=== PATIENT | male | born 1955 ===

== ENCOUNTER 2016-09-14 18:48 | Emergency (ER) | payer OTHER ==
[~2016-09-14] VITALS: Ht 172.7 cm; Wt 64.4 kg
[~2016-09-14 18:48] MED LIST: CYCLOBENZAPRINE5 M2 PO; MOBIC15 M1 PO
[2016-09-14] MEDS ORDERED: MECLIZINE HCL25 MG PO ×2 (19:54→21:28)
[2016-09-14] MEDS ORDERED: ALPRAZOLAM2 M2 PO (19:55)
[2016-09-14] MEDS ORDERED: MULTI-DAY VITA1 EACH PO (19:56)
[2016-09-14] MEDS ORDERED: VITAMIN D-32000 UNI1 PO (19:56)
--- NOTE | 2016-09-14 20:04 | ED AMS/SEIZURE/WEAK/DIZZY ---
History of Present Illness General Chief Complaint: Dizziness Stated Complaint: VERTGO X 1WK Source: patient, family Exam Limitations: no limitations Vital Signs & Intake/Output Vital Signs & Intake/Output Vital Signs Date Time Temp Pulse Resp B/P Pulse O2 O2 Flow FiO2 Ox Delivery Rate 09/14 2100 80 18 174/80 98 Room Air 09/15 1955 Room Air 09/14 1904 98.0 88 20 190/85 99 Room Air Allergies Coded Allergies: No Known Allergies (10/26/15) Reconcile Medications Alprazolam 2 MG TABLET 1 TAB PO PRN ANXIETY (Reported) Cholecalciferol (Vitamin D3) (Vitamin D-3) 2,000 UNIT CAPSULE 1 CAP PO DAILY SUPPLEMENT (Reported) Meclizine HCl 25 MG TABLET 1 TAB PO AD PRN VERTIGO (Reported) Meclizine HCl 25 MG TABLET 1 TAB PO TIDPRN PRN VERTIGO Multivitamin (Multi-Day Vitamins) 1 EACH TABLET 1 TAB PO DAILY SUPPLEMENT ( Reported) Scopolamine Hydrobromide (Transderm-Scop) 1.5MG/3DAY PATCH.TD.3 1 PAT TOP Q3D VERTIGO apply to the hairless area behind 1 ear at least 4 hours before effect is required; reapply every 3 days as needed Triage Note: PATIENT C/O DIZZINESS AND VERTIGO FOR APPROX 2 WEEKS ATTEMPTED TO USE MECLIZINE OTC W/O RELEIF REPORTS OTHER SYMPTOMS W/ HEARING, SPEECH , BALANCE Triage Nurses Notes Reviewed? yes Onset: Abrupt Duration: getting worse, intermittent Timing: multiple episodes today Severity: severe Severity Numbers: 10 HPI: Patient is a 61-year-old male with a past medical history of anxiety who presents emergency room with a one-month history of gradual onset of intermittent room spinning and dizzy sensations. Patient states the last week symptoms have been more persistent pattern with head movements making worse and today patient was complaining of persistent room spinning and dizziness episodes. Patient did try myfe-ife-twctubf meclizine in the past week with relief however today after 2 doses it is UNrelieving. Patient states that during episodes of presenting complaints he has associated symptoms of difficulty finding words or difficulty performing daily living activities such as driving Episodes have associated symptoms of blurred vision Patient denies any illicit drug use Patient states that he did have one episode of headache earlier this week however no headaches currently. Patient presents with son in which they both state no slurred speech or facial droop or extremity weakness has been noted. Patient denies any fevers photophobia ear pain chest pain arm pain jaw pain cough nausea or vomiting Patient did not take his benzodiazepine today due to not having any anxiety-like symptoms (ELMER SOARES) Past History Travel History Traveled to [place] past 21 day No Medical History Any Pertinent Medical History? see below for history Neurological: NONE EENT: NONE Cardiovascular: hyperlipidemia Respiratory: NONE Gastrointestinal: NONE Hepatic: NONE Renal: NONE Musculoskeletal: NONE Psychiatric: anxiety Endocrine: NONE Blood Disorders: NONE Cancer(s): NONE Surgical History Surgical History: non-contributory Psychosocial History What is your primary language Georgian Tobacco Use: Never used ETOH Use: denies use Family History Hx Contributory? No (ELMER SOARES) Review of Systems Review of Systems Constitutional: Reports: see HPI. EENTM: Reports: see HPI. Respiratory: Reports: no symptoms. Cardiovascular: Reports: no symptoms. GI: Reports: no symptoms. Genitourinary: Reports: no symptoms. Musculoskeletal: Reports: no symptoms. Skin: Reports: no symptoms. Neurological/Psychological: Reports: see HPI. Hematologic/Endocrine: Reports: no symptoms. Immunologic/Allergic: Reports: no symptoms. All Other Systems: Reviewed and Negative (ELMER SOARES) Physical Exam Physical Exam General Appearance: no apparent distress, alert, comfortable Comments: Well-developed well-nourished person in no acute distress HEENT: Normal EENT exam, extraocular motion intact, no nystagmus. Pupils equally round and reactive to light and accommodation. Nose is atraumatic. External auditory canal and Tympanic membranes clear. Pharynx normal. No swelling or edema. Neck: Supple, no lymphadenopathy, normal range of motion without pain or tenderness Back: Nontender, no CVA tenderness. Full range of motion Cardiovascular: Regular rate and rhythms no murmurs rubs or gallops, normal JVP Respiratory: Chest nontender. No respiratory distress.breath sounds clear to auscultation bilaterally Abdomen: Soft, nontender nondistended, no appreciable organomegaly. Normal bowel sounds. No ascites Extremity: No edema, no calf tenderness to palpation, normal and equal pulses. Neuro: Alert oriented x3, motor sensory normal, cranial nerves II through XII grossly intact Modified [place]-Hallpike was positive for room spinning sensation. Skin: No appreciable rash on exposed skin, skin is warm and dry. Psych: Mood and affect is normal, memory and judgment is normal. NIH STROKE SCALE -0 Core Measures ACS in differential dx? No CVA/TIA Diagnosis: No Severe Sepsis Present: No Septic Shock Present: No (HERB JEFFRIES,ELMER) Progress Differential Diagnosis: arrythmia, alcohol intoxication, anemia, benign positional vertigo, CVA/stroke, dehydration, drug intoxication, encephalitis, electrolyte imbalance, GI bleed, hypoglycemia, hypoxia, intracranial Hem., intracranial mass/tumor, labrynthitis, meningitis, Meniere's disease, migraine BRIDGES, multiple sclerosis, pneumonia, postural hypotension, presyncope, post- traumatic vertigo, sepsis, seizure disorder, subarachnoid Hem., UTI/pyelo, vertebrobasilar insuff Plan of Care: Orders Procedure Date/time Status COMPREHENSIVE METABOLIC PANEL 09/14 2009 Complete CBC WITHOUT DIFFERENTIAL 09/14 2009 Complete EKG 09/14 2009 Active Laboratory Tests 09/14/162026: Anion Gap 7, Estimated GFR > 60, BUN/Creatinine Ratio 21.1, Glucose 105 H, Calcium 9.3, Total Bilirubin 0.5, AST 29, ALT 29, Alkaline Phosphatase 61, Total Protein 7.0, Albumin 4.2, Globulin 2.8, Albumin/Globulin Ratio 1.5, CBC w Diff NO MAN DIFF REQ, RBC 5.47, MCV 85.9, MCH 28.6, RDW 13.6, MPV 8.0, Gran % 62.6, Lymphocytes % 26.9, Monocytes % 8.5, Eosinophils % 1.3, Basophils % 0.7, Absolute Granulocytes 4.4, Absolute Lymphocytes 1.9, Absolute Monocytes 0.6, Absolute Eosinophils 0.1, Absolute Basophils 0, PUBS MCHC 33.3 09/14/2016 9:02:47 PM on initial examination patient was in no apparent distress however due to past medical history and history of present illness and exam findings that there is suspicion of BPPV At this time there is no suspicion of CVA or TIA in which patient's NIH stroke scale was [address] scan and EKG. After reevaluating patient with medications he had significant resolution of his symptoms. I also suspect that patient has been unknowingly administering previously prescribed benzodiazepine with relief of his breakthrough vertigo symptoms however since patient did not take his medications today the symptoms have been persistent. Patient had unremarkable labs unremarkable CT scan and blood work and patient had complete resolution of symptoms prior to discharge. Patient had normal steady gait on discharge. Patient was strongly advised to follow-up with ENT for concerns of positional vertigo and advised on fall precautions. (HERB JEFFRIES,ELMRE) Diagnostic Imaging: Viewed by Me: CT Scan. Radiology Impression: no acute abnormality, no fracture Initial ED EKG: normal p-waves, normal QRS complex, normal sinus rhythm, 61 BPM NORMAL SINUS RHYTHM Comments: PATIENT: GLADYS JONES PRESENT AGE: 61 PATIENT ACCOUNT NO: [id number] : 54 LOCATION: [facility] ORDERING PHYSICIAN: ELMER JEFFRIES SERVICE DATE: 09/14/16 EXAM TYPE: CAT - CT HEAD WO IV CONTRAST EXAMINATION: CT HEAD WITHOUT CONTRAST CLINICAL INFORMATION: 61-year-old male with dizziness. COMPARISON: None TECHNIQUE: Contiguous axial imaging was performed from the skull base to vertex without intravenous administration of contrast. DLP: 600.71 mGy-cm FINDINGS: The brain parenchyma has normal attenuation with well-preserved buckner-white matter differentiation. No evidence of an acute major vascular territory infarction, hemorrhage, extra-axial fluid correction, focal mass effect or midline shift. The ventricles have normal size and configuration. There are no acute findings within the posterior fossa. The calvarium is intact and the visualized paranasal sinuses, mastoid air cells and middle ear cavities are clear. The orbits, globes and temporomandibular joints are unremarkable. IMPRESSION: No acute intracranial pathology. (ELMER SOARES) Departure Departure Disposition: HOME OR SELF CARE Condition: Stable Clinical Impression Primary Impression: Vertigo Referrals: KIM CAGLE,JENNIFER Norman (PCP/Family) BORIS QUIJANO MD Additional Instructions: As discussed continue all medications as directed, BEGIN THE PRESCRIPTIONS OF the meclizine for future room spinning sensation and begin the prescription is scopolamine patches as directed. On Friday please follow up and establish your nose and throat Dr. QUIJANO for further evaluation treatment. If symptoms worsen return to emergency room. Prescription is waiting at [facility] pharmacy Departure Forms: Customer Survey General Discharge Information Prescriptions: Current Visit Scripts Scopolamine Hydrobromide (Transderm-Scop) 1 PAT TOP Q3D #4 PAT apply to the hairless area behind 1 ear at least 4 hours before effect is required; reapply every 3 days as needed Meclizine HCl 1 TAB PO TIDPRN PRN VERTIGO #30 TAB (HERB JEFFRIES,ELMER) PA/TRADE SHOW COORDINATOR Co-Sign Statement Statement: ED Attending supervision documentation- [X] I saw and evaluated the patient. I have also reviewed all the pertinent lab results and diagnostic results. I agree with the findings and the plan of care as documented in the PA's/TRADE SHOW COORDINATOR's documentation. [X] I have reviewed the ED Record and agree with the PA's/TRADE SHOW COORDINATOR's documentation. [] Additions or exceptions (if any) to the PAs/TRADE SHOW COORDINATOR's note and plan are summarized below: [] (PARAM CAGLE,DAMON Loredo)
[2016-09-14 20:37] LABS: ABSOLUTE BASOPHIL COUNT 0 /CUMM (0.0-0.2); ABSOLUTE EOSINOPHIL COUNT 0.1 /CUMM (0.0-0.7); ABSOLUTE GRANULOCYTE CT 4.4 /CUMM (1.4-6.5); ABSOLUTE LYMPH COUNT 1.9 /CUMM (1.2-3.4); ABSOLUTE MONOCYTE COUNT 0.6 /CUMM (0.10-0.60); BASOPHIL % 0.7 % (0.0-2.0); EOSINOPHIL % 1.3 % (0-5); GRANULOCYTE % 62.6 % (42.2-75.2); MEAN CORPUSCULAR HGB 28.6 PG (27.0-31.0); MEAN CORPUSCULAR HGB CONC 33.3 G/DL (33.0-37.0); MEAN CORPUSCULAR VOLUME 85.9 FL (80.0-94.0); PLATELET COUNT 247 /CUMM (130-400); RBC DISTRIBUTION WIDTH 13.6 % (11.5-14.5); RED BLOOD CELL CT 5.47 /CUMM (4.70-6.10); WHITE BLOOD CELL COUNT 7.1 /CUMM (4.8-10.8)
--- NOTE | 2016-09-14 20:56 | CT SCAN REPORT ---
EXAMINATION: CT HEAD WITHOUT CONTRAST CLINICAL INFORMATION: 61-year-old male with dizziness. COMPARISON: None TECHNIQUE: Contiguous axial imaging was performed from the skull base to vertex without intravenous administration of contrast. DLP: 600.71 mGy-cm FINDINGS: The brain parenchyma has normal attenuation with well-preserved buckner-white matter differentiation. No evidence of an acute major vascular territory infarction, hemorrhage, extra-axial fluid correction, focal mass effect or midline shift. The ventricles have normal size and configuration. There are no acute findings within the posterior fossa. The calvarium is intact and the visualized paranasal sinuses, mastoid air cells and middle ear cavities are clear. The orbits, globes and temporomandibular joints are unremarkable. IMPRESSION: No acute intracranial pathology.
[2016-09-14 21:00] VITALS: BP 174/80
[2016-09-14] MEDS ORDERED: TRANSDERM-SCOP1 EACH TOP (21:05)
== END 2016-09-14 21:55 ==
LOC: ERH 18:48
PROVIDERS: Physician Assistant
DX: R42 Dizziness and giddiness (principal)
CPT/HCPCS: 93005; 93010